=== PATIENT | female | born 1940 | race Two or more races ===

== ENCOUNTER 2021-03-25 22:36 | Inpatient (IN) | payer OTHER ==
[~2021-03-25] VITALS: Ht 160 cm; Wt 86.7 kg
[2021-03-26 00:07] LABS: Basophils # (auto) 0.1 10 ^3/uL (0-0.2); Basophils % (auto) 0.4 % (0.0-2.0); Eosinophils # (auto) 0.1 10 ^3/uL (0-0.8); Eosinophils % (auto) 0.9 % (0.0-7.0); Hematocrit 46.4 % (36.0-46.0); Hemoglobin 15.7 g/dL (12.2-16.2); Lymphocytes # (auto) 1.6 10 ^3/uL (0.4-5.4); Lymphocytes % (auto) 12.5 % (10.0-50.0); Mean Corpuscular Hgb Conc. 33.8 g/dL (32.0-36.0); Mean Corpuscular Volume 94.8 fL (80.0-100.0); Monocytes # (auto) 0.5 10 ^3/uL (0-1.3); Monocytes % (auto) 4.2 % (0.0-12.0); Neutrophils # (auto) 10.6 10 ^3/uL (1.6-8.6); Nucleated Red Blood Cells % 0.1 %; Platelet Count (auto) 275 10^3/uL (140-450); Red Blood Cells 4.89 10^6/uL (4.0-5.20); Red Cell Distribution Width 13.4 % (11.8-14.3); White Blood Cell 12.9 10^3/uL (4.4-10.8)
[2021-03-26 00:12] LABS: Urine Bacteria NONE SEEN /hpf (None Seen); Urine Blood Negative /uL (Negative); Urine Specific Gravity 1.017 (1.001-1.035); Urine WBC 6 /hpf (0 - 5)
[2021-03-26 00:14] LABS: Albumin 3.9 g/dL (3.4-5.0); Amylase 44 U/L (25-115); Anion Gap 6 (5-15); Blood Urea Nitrogen 11 mg/dL (7-18); Calcium 9.4 mg/dL (8.5-10.1); Carbon Dioxide 30 mmol/L (21-32); Chloride 101 mmol/L (98-107); Glucose 140 mg/dL (74-106); Lipase 127 U/L (73-393); Magnesium 2.4 mg/dL (1.6-2.6); Potassium 3.6 mmol/L (3.5-5.1); Sodium 137 mmol/L (136-145)
[2021-03-26] MEDS ORDERED: ACETAMINOPHEN 500 MG TAB PO ONE (00:15)
[2021-03-26 00:20] LABS: Alanine Aminotransferase 18 U/L (13-56); Alkaline Phosphatase 122 U/L (45-117); Aspartate Aminotransferase 17 U/L (15-37); Bilirubin, Total 0.6 mg/dL (0.2-1.0); GFR African American 121 mL/min; GFR Non-African American 100 mL/min
[2021-03-26] MEDS ORDERED: HYDROmorphone HCL 2 MG/ML VL IV ONE (01:00)
[2021-03-26] MEDS ORDERED: ONDANSETRON HCL 4 MG/2 ML VIAL IV ONE (01:00)
[2021-03-26] MEDS ORDERED: LACTATED RINGER'S 500 ML IV ONE (01:00)
[2021-03-26] MEDS ORDERED: IOHEXOL 300 MG/ML 100ML BOTTLE IJ ONE (01:14)
[2021-03-26] MEDS ORDERED: metroNIDAZOLE 500MG/100ML 100 ML IV ONE (02:30)
[2021-03-26] MEDS ORDERED: CIPROFLOXACIN 400MG/200ML 200 ML IV ONE (02:30)
[2021-03-26] MEDS ORDERED: MORPHINE SULFATE 4 MG/ML SYR/VIAL IV PRN (05:15)
[2021-03-26] MEDS ORDERED: ONDANSETRON HCL 4 MG/2 ML VIAL IV PRN (05:15)
[2021-03-26] MEDS ORDERED: ACETAMINOPHEN 325 MG TAB PO PRN (05:15)
[2021-03-26] MEDS ORDERED: cloNIDine HCL 0.1 MG TAB PO PRN (05:15)
[2021-03-26] MEDS ORDERED: MORPHINE SULF INJ 2 MG/ML SYRINGE 1ML IV PRN (05:30)
[2021-03-26] MEDS: cefTRIAXone 1GM/50ML D5W 50 ML IV SCH (06:02)
[2021-03-26] MEDS: amLODIPine BESYLATE 5 MG TAB PO SCH (09:39)
[2021-03-26] MEDS: PANTOPRAZOLE 40 MG TAB PO SCH ×2 (09:39→22:00)
[2021-03-26] MEDS ORDERED: NITR0.4S29 SL (12:52)
[2021-03-26] MEDS ORDERED: HYDR-4798 PO ×2 (12:52)
[2021-03-26] MEDS ORDERED: ISOS1TAB28 PO (12:55)
[2021-03-26] MEDS ORDERED: FURO1TAB33 PO (12:55)
[2021-03-26] MEDS ORDERED: LOSA-39 PO (12:56)
[2021-03-26] MEDS ORDERED: OMEP20TA PO (12:56)
[2021-03-26 13:00] VITALS: BP 125/76
[2021-03-26] MEDS: metroNIDAZOLE 500MG/100ML 100 ML IV SCH ×2 (14:17→18:12)
[2021-03-26 17:00] VITALS: BP 136/77
[2021-03-26] MEDS: HYDROcodone-ACET 5/325MG TAB PO PRN ×2 (17:43→22:00)
[2021-03-26 20:00] VITALS: BP 115/60
[2021-03-26 22:00] VITALS: BP 110/50
[2021-03-26] MEDS: TEMAZEPAM 15 MG CAP PO PRN (22:00)
[2021-03-27] MEDS: metroNIDAZOLE 500MG/100ML 100 ML IV SCH ×3 (03:00→18:53)
[2021-03-27 05:00] VITALS: BP 143/73
[2021-03-27] MEDS: cefTRIAXone 1GM/50ML D5W 50 ML IV SCH (06:00)
[2021-03-27 07:31] LABS: Basophils # (auto) 0 10 ^3/uL (0-0.2); Basophils % (auto) 0.4 % (0.0-2.0); Eosinophils # (auto) 0.2 10 ^3/uL (0-0.8); Eosinophils % (auto) 1.9 % (0.0-7.0); Hematocrit 39.6 % (36.0-46.0); Hemoglobin 13.6 g/dL (12.2-16.2); Lymphocytes # (auto) 1.9 10 ^3/uL (0.4-5.4); Mean Corpuscular Hemoglobin 32.5 pg (28.0-32.0); Mean Corpuscular Hgb Conc. 34.3 g/dL (32.0-36.0); Mean Corpuscular Volume 94.9 fL (80.0-100.0); Monocytes # (auto) 0.7 10 ^3/uL (0-1.3); Monocytes % (auto) 6.6 % (0.0-12.0); Neutrophils # (auto) 8.4 10 ^3/uL (1.6-8.6); Neutrophils % (auto) 74.1 % (37.0-80.0); Platelet Count (auto) 222 10^3/uL (140-450); Red Blood Cells 4.17 10^6/uL (4.0-5.20); White Blood Cell 11.3 10^3/uL (4.4-10.8)
[2021-03-27 07:49] LABS: Albumin 2.8 g/dL (3.4-5.0); Calcium 8.8 mg/dL (8.5-10.1); Potassium 3.1 mmol/L (3.5-5.1)
[2021-03-27 07:52] LABS: Bilirubin, Total 0.7 mg/dL (0.2-1.0); Total Protein 6.3 g/dL (6.4-8.2)
[2021-03-27 09:05] VITALS: BP 151/79
[2021-03-27] MEDS ORDERED: fentaNYL CITRATE 100 MCG/2 ML VL ONE (09:45)
[2021-03-27] MEDS ORDERED: MIDAZOLAM HCL 1MG/1ML-2 ML VIAL ONE (09:45)
[2021-03-27] MEDS: PANTOPRAZOLE 40 MG TAB PO SCH ×2 (09:49→21:56)
[2021-03-27] MEDS: amLODIPine BESYLATE 5 MG TAB PO SCH (09:49)
[2021-03-27] MEDS ORDERED: PROPOFOL 10 MG/ML 20 ML IV ONE (09:54)
[2021-03-27] MEDS: HYDROcodone-ACET 5/325MG TAB PO PRN ×3 (10:11→21:56)
[2021-03-27 12:43] VITALS: BP 122/66
[2021-03-27 17:00] VITALS: BP 149/76
[2021-03-27 22:00] VITALS: BP 151/78
[2021-03-27] MEDS: TEMAZEPAM 15 MG CAP PO PRN (22:37)
[2021-03-28] MEDS: metroNIDAZOLE 500MG/100ML 100 ML IV SCH ×2 (02:53→11:29)
[2021-03-28 05:00] VITALS: BP 148/77
[2021-03-28] MEDS: cefTRIAXone 1GM/50ML D5W 50 ML IV SCH (06:14)
[2021-03-28 09:00] VITALS: BP 135/58
[2021-03-28] MEDS: amLODIPine BESYLATE 5 MG TAB PO SCH (09:32)
[2021-03-28] MEDS: PANTOPRAZOLE 40 MG TAB PO SCH (09:32)
[2021-03-28] MEDS: HYDROcodone-ACET 5/325MG TAB PO PRN (09:32)
[2021-03-28] MEDS ORDERED: POTASSIUM EFFERVESENT TAB 25 MEQ PO ONE (10:30)
[2021-03-28] MEDS ORDERED: POTASSIUM CHL 20 Meq TABLET PO ONE (10:45)
[2021-03-28 12:13] VITALS: BP 135/58
[2021-03-28 12:54] VITALS: BP 135/76
== END 2021-03-28 15:30 | disposition home or self-care (01) | DRG 872 ==
LOC: ER 22:48 → OVERFLOW 03-26 05:15 → EAST 03-26 10:44
PROVIDERS: ADMIT Nurse Practitioner; ATTEND Family Medicine
DX: A41.9 Sepsis, unspecified organism (principal); K57.32 Diverticulitis of large intestine without perforation or abscess without bleeding; N39.0 Urinary tract infection, site not specified; E66.9 Obesity, unspecified; I10 Essential (primary) hypertension; K76.0 Fatty (change of) liver, not elsewhere classified; G89.29 Other chronic pain; Z20.822 Contact with and (suspected) exposure to COVID-19; E78.00 Pure hypercholesterolemia, unspecified; M06.9 Rheumatoid arthritis, unspecified; E78.5 Hyperlipidemia, unspecified; Z90.710 Acquired absence of both cervix and uterus; Z68.32 Body mass index [BMI] 32.0-32.9, adult
CPT/HCPCS: 36415; 74177; 80053; 81001; 82150; 83605; 83690; 83735; 84484; 85025; 87040; 87426; 93005; 96361; 96365; 96366; 96367; 96368; 96375; G0378; J0696; J2250; J2405; J2704; J3490